=== PATIENT | female | born 2000 | race Caucasian/White ===

== ENCOUNTER 2023-08-22 11:06 | Emergency (ER) | payer OTHER ==
[2023-08-22 11:14] VITALS: RESP 18; TEMP 98.5; BMI 17.9
[2023-08-22 12:38] LABS: BASO % 0.7 % (0-2.0); EOS % 1.7 % (0-4.5); HEMATOCRIT 37.7 % (32.4-45.2); HEMOGLOBIN 12.7 GM/dL (10.7-15.3); LYMPH % 23.4 % (8-40); MCH 30.8 pg (25.7-33.7); MCHC 33.6 g/dl (32.0-36.0); MEAN CELL VOLUME 91.6 fl (80-96); MEAN PLT VOLUME 8.6 fl (7.5-11.1); NEUT % 69.2 % (42.8-82.8); PLATELET COUNT 270 10^3/uL (134-434); RBC 4.12 M/mm3 (3.60-5.2); RDW 12.8 % (11.6-15.6); WHITE BLOOD COUNT 8.3 K/mm3 (4.0-10.0)
[2023-08-22 12:56] LABS: POTASSIUM 3.8 mmol/L (3.5-5.1)
[2023-08-22 13:00] LABS: ALBUMIN 3.8 g/dl (3.4-5.0); BLOOD UREA NITROGEN 10.8 mg/dL (7-18)
[2023-08-22 13:03] LABS: CREATININE 0.5 mg/dL (0.55-1.3)
[2023-08-22 13:04] LABS: BILIRUBIN,TOTAL 0.5 mg/dL (0.2-1); TOT PROT 7.2 g/dl (6.4-8.2)
[2023-08-22 13:16] LABS: MAGNESIUM 2.2 mg/dL (1.8-2.4)
[2023-08-22 13:58] VITALS: BP 93/55; PULSE 70
== END 2023-08-22 13:58 | disposition home or self-care (01) ==
LOC: JER 11:06
DX: R53.1 Weakness (principal); R55 Syncope and collapse
CPT/HCPCS: 36415; 80053; 83735; 84703; 85025; 93005; 93010; 99284-25